=== PATIENT | male | born 1940 | race African-American/Black ===

== ENCOUNTER 2018-04-08 09:50 | Outpatient (CLI) | payer MEDICARE, BC ==
[~2018-04-08 09:50] MED LIST: ALFUZOSIN HCL10 MG PO; AMLODIPINE BESY10 MG ORAL; ATORVASTATIN CA20 MG ORAL; DUTASTERIDE0.5 MG PO; FISH OIL CAP1000 MG ORAL; LANSOPRAZOLE30 MG ORAL; METFORMIN HCL500 M1 ORAL; ONE DAILY FOR1 EAC2 ORAL; VIT B12 PO; VIT C PO; VIT E PO; vit d3 PO
== END 2018-04-08 11:50 | disposition home or self-care (01) ==
LOC: MRI 09:50
DX: M75.111 Incomplete rotator cuff tear or rupture of right shoulder, not specified as traumatic (principal)

== ENCOUNTER 2018-09-05 06:53 | Day surgery (SDC) | payer MEDICARE, BC ==
[~2018-09-05] VITALS: Ht 185.4 cm; Wt 104.3 kg
[2018-09-05] VITALS (7 sets, daily range): BP systolic 123–154; BP diastolic 74–82
--- NOTE | 2018-09-05 07:27 | Short Stay Surgery H&P ---
History of Present Illness History of Present Illness Chief Complaint Abdominal pains and screening colon HPI Anjum Gamble is a 77 year old male who was admitted on for Abdominal Pain, Gerd/colon screening Patient History Allergies: Coded Allergies: No Known Allergies (Unverified , 08/03/16) PAST MEDICAL HISTORY: (1) Hypertension (2) Diverticulosis (3) Arthritis (4) Hyperlipidemia Medication History Scheduled Alfuzosin* (Uroxatrol*), 10 MG PO DAILY, (Reported) Amlodipine Besylate* (Amlodipine Besylate*), 10 MG ORAL DAILY, (Reported) Atorvastatin Calcium* (Atorvastatin Calcium*), 10 MG ORAL DAILY, (Reported) Dutasteride (Dutasteride), 0.5 MG PO DAILY, (Reported) Fish Oil (Fish Oil 1,000 mg Capsule), 1,000 MG ORAL DAILY, (Reported) Lansoprazole* (Lansoprazole*), 30 MG ORAL DAILY, (Reported) Metformin Hcl* (Metformin Hcl*), 500 MG ORAL TWICE A DAY, (Reported) Mv,Minerals/Fa/Lycopene/Ginkgo (One Daily For Men 50+ Adv Tab), 1 TAB ORAL DAILY , (Reported) [Vit B12], 1 TAB PO DAILY, (Reported) [Vit C], 1 TAB PO DAILY, (Reported) [Vit E], 1 TAB PO DAILY, (Reported) [vit d3], 1 TAB PO DAILY, (Reported) Review of Systems Cardiovascular: Reports: no symptoms Respiratory: Reports: no symptoms Skeletal: Reports: osteroarthritis Gastrointestinal: Reports: gastro esophageal reflux disease Genitourinary: Reports: BPH Neurologic: Reports: no symptoms Endocrine: Reports: diabetes - type 2 Hematologic: Reports: no symptoms Physical Exam Skin: normal HENT: normal Heart: normal Lungs: normal Abdomen: normal Extremities: normal Genitourinary: normal Plan Plan of Care Upper and lower GI endoscopies with biopsy Preop Interventions None Summary of Findings See the reports Attestation Are the patient's medical conditions optimized for surgery? Attestation Response: yes Noble Camara MD Sep 05, 2018 07:27
--- NOTE | 2018-09-05 07:28 | Pre-Procedure Note/Attestation ---
Pre-Procedure Note/Attestation Complete Prior to Procedure Planned Procedure: left Procedure Narrative: Examination of the upper and lower GI tact. Indications for Procedure Pre-Operative Diagnosis: R/O Peptic ulcer/gastritis and colon polyps Attestation I attest that I discussed the nature of the procedure; its benefits; risks and complications; and alternatives (and the risks and benefits of such alternatives ), prior to the procedure, with the patient (or the patient's legal national account representative). I attest that, if there was a reasonable possibility of needing a blood transfusion, the patient (or the patient's legal national account representative) was given the [place] [facility] [employer] [facility] standardized written summary, pursuant to the Marino Geovanni Blood Safety Act ([place] Health and Safety Code # 1645, as amended). I attest that I re-evaluated the patient just prior to the surgery and that there has been no change in the patient's H&P, except as documented below: Noble Camara MD Sep 05, 2018 07:28
[2018-09-05] MEDS ORDERED: fentaNYL 100 mcg/2 mL IV PRN (07:30)
[2018-09-05] MEDS ORDERED: DiphenhydrAMINE 50mg/ml Inj IVP PRN (07:30)
[2018-09-05] MEDS ORDERED: Midazolam 2mg/2ml Inj IVP PRN (07:30)
[2018-09-05] MEDS ORDERED: Atropine Inj 1mg/10ml Syr IV PRN (07:30)
--- NOTE | 2018-09-05 07:33 | Anethesia Preoperative Eval ---
Anesthesia Pre-op PMH/ROS General Date of Evaluation: Sep 05, 2018 Time of Evaluation: 07:30 Anesthesiologist: francisco ASA Score: ASA 3 Mallampati Score Class I : Soft palate, uvula, fauces, pillars visible Class II: Soft palate, uvula, fauces visible Class III: Soft palate, base of uvula visible Class IV: Only hard plate visible Mallampati Classification: Class II Surgeon: zafar Diagnosis: abdominal pain, gerd Surgical Procedure: egd/colonoscopy Anesthesia History: none Social History: smoking - former Family History: no anesthesia problems Allergies: Coded Allergies: No Known Allergies (Unverified , 08/03/16) Medications: see eMAR Patient NPO?: Yes Past Medical History Cardiovascular: Reports: HTN, other - hyperlipidemia Pulmonary: Reports: CHERRY Gastrointestinal/Genitourinary: Reports: GERD, other - bph Endocrine: Reports: DM Musculoskeletal/Integumentary: Reports: OA Other: obesity Anesthesia Pre-op Phys. Exam Physician Exam Constitutional: NAD Neurologic: CN 2-12 intact Cardiovascular: RRR Respiratory: CTA Gastrointestinal: S/NT/ND Airway Exam Mallampati Score: Class II MO: limited Neck: flexible TMD: 2fb ROM: limited Dentures: lower Anesthesia Pre-op A/P Risk Assessment & Plan Assessment: asa4 Plan: mac Status Change Before Surgery: No Pre-Antibiotics Drug: Janet Fernandez MD Sep 05, 2018 07:33
[2018-09-05] MEDS ORDERED: LR 1000ml ONE (07:40)
[2018-09-05] MEDS ORDERED: Lidocaine 1% MPF 10mg/ml 5ml ONE (07:40)
[2018-09-05] MEDS ORDERED: Propofol 200mg/20ml IV ONE (07:40)
[2018-09-05] MEDS ORDERED: Atropine Sulfate 0.4mg/ml inj ONE (07:40)
--- NOTE | 2018-09-05 08:26 | Endoscopy Procedure Note ---
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 Biopsies obtained from antrum/preepyloric are and gastric body. Esophageal brushing done., colonoscopy - Mild divericulosis of left colon and highly redundancy of left colon;otherwise normal total colonoscopy. Specimen: yes Pt Tolerated Procedure Well: Yes Estimated Blood Loss: none Anesthesia Anesthesiologist: Dr. Sexton Anesthesia: moderate sedation Medications Medication Given: see anesthesia record Inserted Devices Implant(s) used?: No Quality Quality of Bowel Preparation: Fair Did scope reach the cecum?: Yes Was there any complications?: No GI Core Measures 50 yrs or older w/o bx or poly: Yes 10yrs. F/U not recommended: Yes If not recommended, why?: <3yrs. since last colonoscopy: No Last colonoscopy >= to 3yrs: Yes Noble Camara MD Sep 05, 2018 08:26
--- NOTE | 2018-09-05 08:27 | Discharge Instructions ---
Discharge Instructions Discharge Instructions Follow up with: See the doctor in office after two weeks. For Congestive Heart Failure Reminder Report to your physician any weight gain of 5 pounds or more in one week. Noble Camara MD Sep 05, 2018 08:27
--- NOTE | 2018-09-05 09:42 | Immediate Post-Op Evaluation ---
Immediate Post-Op Evalulation Immediate Post-Op Evalulation Procedure: egd/colonoscopy/bx Date of Evaluation: Sep 05, 2018 Time of Evaluation: 08:37 IV Fluids: 400ml lr Blood Products: none Estimated Blood Loss: negligible Blood Pressure Systolic: 127 Blood Pressure Diastolic: 74 Pulse Rate: 71 Respiratory Rate: 18 O2 Sat by Pulse Oximetry: 98 Temperature (Fahrenheit): 97.3 Pain Score (1-10): 0 Nausea: No Vomiting: No Complications none Patient Status: awake, reacts, patent Hydration Status: adequate Drug: Janet Fernandez MD Sep 05, 2018 09:42
--- NOTE | 2018-09-05 09:44 | 48 Hour Post Anesthesia Eval ---
Post Anesthesia Evaluation Procedure: egd/colonoscopy/bx Date of Evaluation: Sep 05, 2018 Time of Evaluation: 08:39 Blood Pressure Systolic: 130 0: 78 Pulse Rate: 71 Respiratory Rate: 18 Temperature (Fahrenheit): 97.3 O2 Sat by Pulse Oximetry: 98 Airway: patent Nausea: No Vomiting: No Pain Intensity: 0 Hydration Status: adequate Cardiopulmonary Status: stable Mental Status/LOC: patient returned to baseline Post-Anesthesia Complications: none Follow-up care needed: N/A Janet Wade MD Sep 05, 2018 09:43
--- NOTE | 2018-09-05 10:30 | Operative Note - Dictated ---
DATE OF OPERATION: 09/05/2018 SURGEON: Noble Camara M.D. PROCEDURE: Esophagogastroduodenoscopy with biopsy. PREOPERATIVE DIAGNOSIS: Abdominal pain. 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 Biopsy was taken from the prepyloric area and midgastric body and esophageal brushing was also done. MEDICATION USED: Per Dr. Sexton, anesthesiologist. INSTRUMENT: GIF Olympus upper GI video endoscope. DESCRIPTION OF PROCEDURE: The patient after arriving endoscopy unit, was told about risks and benefits of the procedure, which he accepted and signed informed consent. At this time, he was put on the left lateral decubitus position. After adequate IV sedation, the scope was gently passed through the cricopharyngeal area and gradually pushed towards the GE junction. In different parts of the esophagus, there was minimal exudative process adhering to the esophageal mucosa, which raised the possibility of underlying Keesha esophagus as the patient also does have diabetes mellitus. Therefore, the esophageal brushing was done. At this time, the scope was advanced towards the GE junction, which revealed normal finding without any evidence of hiatal hernia or Phelps's. Subsequently, the scope was guided into the stomach, gastric cavity was distended with insufflation of air. Gradually, the areas of the fundus and the body and the antrum were examined, which basically revealed normal gastric mucosa without any inflammatory process. However, in the area of the pyloric section and in distal antrum, there was linear erythema, but no ulcerations. There was no any evidence of polyps or tumors in the stomach. No angiodysplasia. At this point, one random biopsy from midbody of the stomach and the other one prepyloric area was obtained and subsequently scope was passed through the pylorus. First and second portion of duodenum were examined, which revealed completely normal findings. Finally, the scope was pulled back into the stomach. A retroflexion maneuver was applied and the area of the gastroesophageal junction was examined closely, which revealed no abnormalities. Finally, the scope was pulled out and procedure was terminated. The patient tolerated the procedure well. Noble Camara M.D. DR: SUPRIYA JOB#: [id number] CC:
--- NOTE | 2018-09-05 10:30 | Operative Note - Dictated ---
DATE OF OPERATION: 09/05/2018 SURGEON: Noble Camara M.D. PROCEDURE: Total colonoscopy. PREOPERATIVE DIAGNOSIS: History of colon polyps and screening colonoscopy. POSTOPERATIVE DIAGNOSIS: Mild left colonic diverticulosis and high redundancy of rectosigmoid area, otherwise complete normal study up to the base of the cecum as examined. MEDICATION USED: Per Dr. Sexton, anesthesiologist. INSTRUMENT: GIF Olympus video colonoscope. DESCRIPTION OF PROCEDURE: The patient after arriving at endoscopy unit, was told about risks and benefits of the procedure, which he accepted and signed informed consent. At this time, the scope was gradually advanced through the anorectal area, which revealed no major hemorrhoids. The rectum itself was completely within normal limits without any polyps, tumors, inflammatory process, etc. Subsequently, the scope was passed through very redundant left colon, which took a long time to pass through, however revealed evidence of occasional diverticular lesions consistent with prior diagnosis of diverticulosis of the colon. However, there was no any evidence of intracolonic polyps or tumors, inflammatory process, etc. Gradually, the scope was advanced towards the splenic flexure, transverse colon, hepatic flexure, and finally was guided into the right colon all the way to the base of the cecum. There was no any other abnormalities found, however. The colon cleanup was fair. At this point, within six minutes, the scope was gradually withdrawn and re-evaluation of the colon did not reveal any other abnormalities except what is stated earlier. The patient tolerated the procedure well and left the endoscopy room in a good condition. Noble Camara M.D. DR: SUPRIYA JOB#: [id number] CC:
== END 2018-09-05 09:50 | disposition home or self-care (01) ==
LOC: GAS 06:53
DX: Z12.11 Encounter for screening for malignant neoplasm of colon (principal); K57.30 Diverticulosis of large intestine without perforation or abscess without bleeding; Q43.8 Other specified congenital malformations of intestine; Z86.010 Personal history of colon polyps; K29.50 Unspecified chronic gastritis without bleeding; B37.9 Candidiasis, unspecified; I10 Essential (primary) hypertension; M19.90 Unspecified osteoarthritis, unspecified site; E78.5 Hyperlipidemia, unspecified; N40.0 Benign prostatic hyperplasia without lower urinary tract symptoms; E11.9 Type 2 diabetes mellitus without complications; Z79.84 Long term (current) use of oral hypoglycemic drugs; G47.33 Obstructive sleep apnea (adult) (pediatric); E66.9 Obesity, unspecified
CPT/HCPCS: 43239; 82962; G0105; J0461; J2704; 94003; 94150